=== PATIENT | female | born 1945 | race African-American/Black ===

== ENCOUNTER → 2019-04-15 | Outpatient (CLI) | payer MEDICARE ==
--- NOTE | 2019-04-16 10:33 | CT ---
EXAMINATION TYPE: CT angio head DATE OF EXAM: 04/15/2019 1:35 PM COMPARISON: Outside [facility] report March 20, 2019 HISTORY: Abnormal brain scan CT DLP: [id number] Automated exposure control for dose reduction was used. TECHNIQUE: Performed with IV Contrast, patient injected with 50 mL of Isovue 370. Three-D reconstructed images c reated on independent workstation. . FINDINGS: Evaluation slightly suboptimal as there is venous enhancement also present. Noncontrast CT shows no acute intracranial hemorrhage or midline shift. Ventricles and sulci felt normal in size for patient's age. There is dominant left vertebral artery. Vertebral arteries are patent to basilar junction. There is no significant focal stenosis or aneurysmal change. There are patent bilateral posterior communicatin g arteries seen. Images of the anterior circulation show patent anterior communicating artery. There is no aneurysmal change identified. There is small caliber hypoplastic right anterior cerebral artery redemonstrated. IMPRESSION: No aneurysmal change at the level of [place].
== END | disposition home or self-care (01) ==
LOC: RADCTMAIN 08:05
PROVIDERS: ATTEND Psychiatry & Neurology Neurology
DX: R94.02 Abnormal brain scan (principal)
CPT/HCPCS: 82565; 84520; 70496; Q9967

== ENCOUNTER → 2019-05-20 | Outpatient (CLI) | payer MEDICARE ==
[2019-05-21 00:27] LABS: African American GFR (CKD) 63.8 (60.0-200.0)
== END | disposition home or self-care (01) ==
LOC: LABWHC1 10:51
PROVIDERS: ATTEND Physician Assistant
DX: N18.9 Chronic kidney disease, unspecified (principal)
CPT/HCPCS: 36415; 82565; 84520